=== PATIENT | female | born 1995 | race Caucasian/White ===

== ENCOUNTER → 2020-10-11 | Outpatient (CLI) | payer MEDICAID | LOC: M OUTALCOH 08:03 | PROVIDERS: ATTEND Psychiatry & Neurology Psychiatry | DX: Z13.39 Encounter for screening examination for other mental health and behavioral disorders (principal); F12.20 Cannabis dependence, uncomplicated; F11.10 Opioid abuse, uncomplicated ==

== ENCOUNTER 2020-11-11 10:00 | Outpatient (RCR) | payer MEDICAID | END 2020-11-16 | LOC: M OUTALCOH 10:00 | PROVIDERS: ATTEND Psychiatry & Neurology Psychiatry | DX: F12.10 Cannabis abuse, uncomplicated (principal); F11.10 Opioid abuse, uncomplicated; Z72.0 Tobacco use ==

== ENCOUNTER → 2020-11-18 | Outpatient (CLI) | payer OTHER | LOC: M PLALAB 13:53 | PROVIDERS: ATTEND Psychiatry & Neurology Psychiatry | DX: F12.10 Cannabis abuse, uncomplicated (principal); F11.10 Opioid abuse, uncomplicated ==

== ENCOUNTER 2020-11-25 10:00 | Outpatient (RCR) | payer MEDICAID | END 2020-12-17 | LOC: M OUTALCOH 10:00 | PROVIDERS: ATTEND Psychiatry & Neurology Psychiatry | DX: F12.10 Cannabis abuse, uncomplicated (principal); F11.10 Opioid abuse, uncomplicated; Z72.0 Tobacco use ==

== ENCOUNTER 2021-06-22 17:41 | Emergency (ER) | payer MEDICAID ==
[~2021-06-22] VITALS: Ht 154.9 cm; Wt 51.5 kg
[2021-06-22 17:42] VITALS: BP 150/80
== END 2021-06-22 17:56 | disposition left against medical advice (07) ==
LOC: M ED 17:41
DX: Z53.21 Procedure and treatment not carried out due to patient leaving prior to being seen by health care provider (principal)